=== PATIENT | male | born 1970 | race Caucasian/White ===

== ENCOUNTER 2024-10-31 06:57 | Emergency (ER) | payer OTHER, SELFPAY ==
[2024-10-31] VITALS (12 sets, daily range): BP systolic 161–190; BP diastolic 84–106; BMI 34.8
--- NOTE | 2024-10-31 08:03 | ED.GENMED ---
History of Present Illness
<KATHY Robles - Last Filed: 10/31/24 13:05>
General
Chief Complaint: Blood Pressure Problem
Source: patient and other (Residential guards)
Exam Limitations: none
Time Seen by Provider: 10/31/24 07:10
History of Present Illness
History of Present Illness:
This is a 54 y/o male with PMH of untreated HTN and T2DM who presents to the ED with CC of blood pressure problem. He was pulled over around midnight last night by the police who took him into custody due to a warrant out for his arrest from 2022.
On arrival to the correctional facility pt was noted to have HTN and presents to the ED for medical clearance for incarceration. Pt admits to feeling tired but is unable to elaborate any further. Residential guards report that the patient was up late
last night and did Meth prior to getting pulled over around midnight and has yet to sleep. Denies dyspnea, chest pain, MILLS, dizziness, cough, palpitations, abdominal pain and back pain. Pt was treated for HTN with Amlodipine in the past but is no
longer on the medication. Pt has also stopped insulin for T2DM and has not followed up with Endocrine as scheduled due to lack of insurance.
Past History
<KATHY Robles - Last Filed: 10/31/24 13:05>
Social History
Tobacco: Smoker (1/2 PPD x 40yrs (20 pack yrs))
Alcohol: None
Drug: Other (Meth)
Living: with roommate
Employment: Employed
Review of Systems
<KATHY Robles - Last Filed: 10/31/24 13:05>
Review of Systems
Constitutional: Reports no symptoms
EENT: Reports no symptoms
Respiratory: Reports no symptoms
Cardiac: Reports no symptoms
ABD/GI: Reports no symptoms
: Reports no symptoms
Musculoskeletal: Reports no symptoms
Skin: Reports no symptoms
Neurological: Reports no symptoms
Endocrine: Reports no symptoms
Hematologic/Lymphatic: Reports no symptoms
Psychiatric: Reports no symptoms
Phy Exam
<Hanh Echevarria [facility] - Last Filed: 10/31/24 13:05>
Physical Exam
Physical Exam:
Eyes: PERRL, EOMI, red reflex present, optic discs cream colored with well-defined borders bilaterally, no hemorrhages or exudates
Resp: normal respiratory effort; vesicular breath sounds throughout without adventitious sounds; even, quiet breathing
CV: RRR, normal S1/S2; no murmurs, rubs or gallops
ABD: soft, non-distended; non-tender to palpation; normal bowel sounds; no masses;no epigastric, renal, iliac bruits;
Skin: hyperpigmentation and mild scaling on bilateral lower schultz and calfs
Neuro: alert & oriented x3, no abnormalities of gait or posture, heel to schultz intact, ordnance mechanic strength 5/5 bilaterally
General Physical Exam
General Presentation: well appearing and no apparent distress
General age: appears stated age
General Skin: warm and dry
General Mental: alert
General Hydration: appears well hydrated
Course
<Hanh Echevarria [facility] - Last Filed: 10/31/24 13:05>
Orders/Labs/Results
Orders:
Orders
10/31/24 08:22
Complete Blood Count/No Diff Urgent
10/31/24 09:34
Comprehensive Metabolic Panel Urgent
10/31/24 10:09
Amlodipine [Norvasc] 5 mg PO NOW STA
Abnormal Lab Results
10/31/24
08:22
WBC 15.1 H 10^3/uL
(4.8-10.8)
MPV 11.0 H fL
(7.4-10.4)
10/31/24 08:22
10/31/24 09:34
Vital Signs
Initial and Last Documented VS:
Initial Vital Signs
BP Pulse Ox
188/106 95
10/31/24 07:01 10/31/24 07:01
Last Documented Vital Signs
Temp Pulse Resp BP Pulse Ox
98.2 F 101 16 174/98 95
10/31/24 10:00 10/31/24 08:00 10/31/24 10:00 10/31/24 10:17 10/31/24 10:17
<Walter So MD - Last Filed: 10/31/24 10:15>
Orders/Labs/Results
Orders:
Orders
10/31/24 08:22
Complete Blood Count/No Diff Urgent
10/31/24 09:34
Comprehensive Metabolic Panel Urgent
10/31/24 10:09
Amlodipine [Norvasc] 5 mg PO NOW STA
Abnormal Lab Results
10/31/24
08:22
WBC 15.1 H 10^3/uL
(4.8-10.8)
MPV 11.0 H fL
(7.4-10.4)
10/31/24 08:22
10/31/24 09:34
Vital Signs
Initial and Last Documented VS:
Initial Vital Signs
BP Pulse Ox
188/106 95
10/31/24 07:01 10/31/24 07:01
Last Documented Vital Signs
Temp Pulse Resp BP Pulse Ox
98.2 F 101 16 174/98 95
10/31/24 10:00 10/31/24 08:00 10/31/24 10:00 10/31/24 10:17 10/31/24 10:17
<KATHY Robles - Last Filed: 10/31/24 13:05>
*Critical Care Note
Total Time (30-74mins, 75-104mins- exclusive of procedures): Not Applicable
ED Attending Note
<KATHY Robles - Last Filed: 10/31/24 13:05>
-
Portions of this chart may have been created with voice recognition software.� Occasional wrong word or��sound alike� substitutions may have occurred due to the inherent limitations of voice recognition software.
<Walter So MD - Last Filed: 10/31/24 10:15>
ED Attending Note
Patient seen and examined by attending physician: Yes
I performed the substantive portion of visit, reviewed & personally made and approve the management plan that is documented in note by myself or FIDEL.: Yes
ED Attending Note:
54-year-old male currently being arrested for car legal issues. Apparently did methamphetamines overnight. Complains of some weakness. Here primarily for medical clearance for hypertension. Blood pressure upon presentation of present was about
180/110. Patient is supposed to be on blood pressure medication, apparently amlodipine but is noncompliant. Also supposed to be on metformin and noncompliant. He has no specific medical complaints denying chest pain shortness of breath headache
visual issues etc.
GENERAL: Alert and oriented in no apparent distress
EYE: Orbits normal.
NECK: Supple, no significant adenopathy.
ENT: Pharynx without erythema
CARDIAC: Regular rate and rhythm without any obvious murmurs.
LUNGS: Clear breath sounds,normal
ABDOMEN: Soft, without focal tenderness or distention
NEUROLOGICAL: Alert and oriented , grossly non-focal
SKIN: Warm and dry, no rash or lesion, no discoloration, skin intact.
MUSCULOSKELETAL: Chronic lower extremity edema with hyperpigmentation changes
PSYCH: Normal and appropriate interaction.
Stable blood pressure here. Borderline high. No concerning clinical findings. No complaints related to his hypertension. Will check his renal function and blood sugar. Will recommend starting amlodipine at the present.
Labs stable. Incidental leukocytosis but no infectious symptoms. Possibly all related to his methamphetamine use. Observe for infectious issues.
Discharge Plan
Departure
Patient Disposition: Home (Routine Discharge)
Date of Disposition: 10/31/24
Time of Disposition: 10:10
Patient with high blood pressure during this ER visit?: Yes
Discharge Problem:
Hypertension, Leukocytosis
Instructions: BLOOD PRESSURE
Prescriptions:
No Action
quetiapine 25 mg Tablet
25 mg PO DAILY
clonazepam 0.5 mg Tablet
0.5 mg PO HS
clonazepam 0.5 mg Tablet
0.5 mg PO BID
quetiapine 50 mg Tablet
50 mg PO HS
ascorbic acid (vitamin C) [Vitamin C] 1,000 mg Tablet
1,000 mg PO BID
diphenhydramine HCl 25 mg Capsule
25 mg PO BID
clonazepam 1 mg Tablet
1 mg PO BID
Referrals:
[facility],Facility [Family Provider] -
Activity Restrictions/Additional Instructions:
Would strongly consider starting amlodipine 5 mg daily
Monitor blood pressure
He has an elevated white count but no infectious symptoms.
Watch for any infectious issues including high fever respiratory symptoms abdominal pain etc.
Interventions
Interventions:
*Risk Screen - Suicide Last Done: 10/31/24 07:07
*General Assessment Last Done: 10/31/24 07:03
*Neglect/Abuse Screening Last Done: 10/31/24 07:03
ED- Fall Risk Assessment Last Done: 10/31/24 07:03
*Nursing Disposition Last Done: 10/31/24 10:17
ED- Cardiac Assessment Last Done: 10/31/24 07:03
ED- Neurological Assessment Last Done: 10/31/24 07:07
ED- Pulmonary Assessment Last Done: 10/31/24 07:07
Discharge Date and Time
Discharge Date/Time: 10/31/24 10:21
Print Language: GRENADIAN
[2024-10-31 08:36] LABS: Hematocrit 49.2 % (39.0-52.0); Mean Corp Hgb Conc. 34.6 g/dL (33.0-37.0); Mean Corpuscular Hgb 28.2 pg (27.0-31.0); Mean Corpuscular Volume 81.7 fL (80.0-94.0); Platelet Count 152 10^3/uL (130-400); Red Blood Cell Count 6.02 10^6/uL (4.70-6.10); Red Cell Dist. Width 11.9 % (11.5-14.5); White Blood Cell Count 15.1 10^3/uL (4.8-10.8)
[2024-10-31 10:01] LABS: ALT (SGPT) 27 U/L (0-50); AST (SGOT) 36 U/L (17-59); Albumin 4.5 g/dl (3.5-5.0); Alkaline Phosphatase 66 U/L (38-126); Blood Urea Nitrogen 17 mg/dl (9-20); Calcium 9.3 mg/dl (8.4-10.2); Carbon Dioxide 28 mmol/L (22-30); Chloride 104 mmol/L (98-107); Estimated Creatinine Clearance > 125 ml/min; Glucose 84 mg/dl (70-99); Potassium 4.1 mmol/L (3.5-5.1); Sodium 140 mmol/L (135-145); Total Bilirubin 0.6 mg/dl (0.2-1.3); Total Protein 6.7 g/dl (6.3-8.2); eGFR > 60.00
[2024-10-31] MEDS: NORVASC 5 MG PO (10:17)
== END 2024-10-31 10:21 ==
LOC: EMR 06:57
PROVIDERS: EMERGENCY PHYSICIAN Emergency Medicine
DX: I10 Essential (primary) hypertension (principal); D72.829 Elevated white blood cell count, unspecified; E11.9 Type 2 diabetes mellitus without complications; F17.210 Nicotine dependence, cigarettes, uncomplicated; Z91.148 Patient's other noncompliance with medication regimen for other reason; Z59.71 Insufficient health insurance coverage
CPT/HCPCS: 99283; 80053; 85027